=== PATIENT | male | born 1970 | race Caucasian/White ===

== ENCOUNTER → 2024-02-11 11:14 | Outpatient (BNVA) | payer BC, MEDICAID, SELFPAY | PROVIDERS: PCP Nurse Practitioner; Visit Provider Specialist | DX: M25.551 Pain in right hip (principal) | CPT/HCPCS: 73502 ==

== ENCOUNTER 2024-02-16 05:16 | Day surgery (SDC) | payer BC, MEDICAID, SELFPAY ==
[2024-02-16] VITALS (11 sets, daily range): BP systolic 121–172; BP diastolic 72–101; PULSE 68–82; RESP 16–72; TEMP 36.3–36.5; O2SAT 92–99; BMI 30.7
--- NOTE | 2024-02-16 05:55 | P.HPUD_ITS ---
Surgery/Procedure H&P Update DATE OF PROCEDURE: February 16, 2024 DATE H&P PERFORMED: 01/28/24 H&P UPDATE INFORMATION: I have reviewed H&P completed within last 30 days, I have examined patient prior to procedure, No changes to prior documentation and H&P is in [facility] on date indicated PLANNED PROCEDURE: Operation Date: 02/16/24 07:00 Proposed Procedures p Excision upper back mass 06548, R22.2(Not Applicable) - Juvenal English MD
[2024-02-16] MEDS: sodium chloride 0.9% 1,000 ML 30 ML IV (06:37)
[2024-02-16 06:42] LABS: Glucose Point of Care 192 mg/dL (70-110)
[2024-02-16] MEDS: ceFAZolin 2,000 mg SDV 2000 MG IVP (07:03)
--- NOTE | 2024-02-16 07:13 | ANES.PREANE2 ---
Pre-Anesthetic Assessment Height/Weight: Height 1.74 m Weight 92.986 kg Temp Pulse Resp BP Pulse Ox O2 Del Method 97.6 F 73 17 172/101 99 Room Air 02/16/24 06:10 02/16/24 06:10 02/16/24 06:10 02/16/24 06:10 02/16/24 06:10 02/16/24 06:10 Operation Date: 02/16/24 07:00 Proposed Procedures p Excision upper back mass 21536, R22.2(Not Applicable) - Juvenal English MD Familial anesthetic complications: none Was Beta Michael taken within 24 hours: N/A Was Clonidine taken within 24 hours: N/A Last intake: Intake Last Liquid Date 02/15/24 Last Liquid Time 21:00 Last Solid Date 02/15/24 Last Solid Time 21:00 Social No alcohol and No tobacco marijuana Exam alert, oriented x 3, clear to auscultation bilaterally and regular rate & rhythm Airway Mallampati: Class II CV/HEM Hypertension Metabolic Diabetes Mellitus Anesthetic Plan ASA status: 3 Anesthesia: General Risk of > 500 ml blood loss (7ml/kg in children): No Medications/Allergies Home Medications Medication Instructions Recorded Confirmed Last Taken Type mupirocin 2 % topical ointment topical 01/28/24 02/11/24 Unknown History dapagliflozin propanediol 10 mg 10 mg PO DAILY 02/13/24 02/16/24 02/15/24 History tablet (Farxiga) duloxetine 30 mg capsule,delayed 30 mg PO DAILY 02/13/24 02/16/24 02/15/24 History release glimepiride 1 mg tablet 1 mg PO DAILY 02/13/24 02/16/24 02/15/24 History lisinopril 20 mg tablet 20 mg PO DAILY 02/13/24 02/16/24 02/15/24 History metformin 500 mg tablet 500 mg PO DAILY 02/13/24 02/16/24 02/15/24 History metoprolol succinate 50 mg 100 mg PO DAILY 02/13/24 02/16/24 02/15/24 History tablet,extended release 24 hr Allergies Allergy/AdvReac Type Severity Reaction Status Date / Time No Known Allergies Allergy Verified 02/11/24 12:22 Current Medications Generic Name Dose Route Start Last Admin Trade Name Freq PRN Reason Stop Dose Admin Sodium Chloride 1,000 mls @ 30 mls/hr 02/16/24 06:00 02/16/24 06:37 Sodium Chloride 0.9% IV 02/17/24 05:59 30 mls/hr .Q24H JENNY Administration PFSH Anesthesia Social History Smoking and tobacco/nicotine status: never used tobacco/nicotine Data Anesthesia Cardiac Studies: No Data to Display
[2024-02-16] MEDS: lidocaine-epi 1% 20 mL INJ INJECTION (07:40)
[2024-02-16] MEDS: BUPivacaine 0.25% INJ 30 mL INJECTION (07:40)
--- NOTE | 2024-02-16 08:16 | P.OP_ITS ---
Operative Report Date of procedure: February 16, 2024 Pre-op diagnosis: Right upper back mass Post-op diagnosis: Right upper back mass Post-op findings: There was a right upper back mass of the subcutaneous tissue extending to the level of the fascia measuring 5 x 5 x 3 cm, likely consistent with the epidermal inclusion cyst Procedure done: Excision of right upper back mass Specimens removed/disposition: Upper back mass Surgeon: Juvenal English MD Interactive Art Director: DORON OR STaff Estimated blood loss: 5 Brief History: This was a 53-year-old male who presented to my office for evaluation of a large right upper back mass, according to the patient this likely a cyst and it has drained multiple times over his lifetime, he will like to have it excised. After discussion of all risk and benefits of documented my preop note with side to proceed Procedure: Patient was brought into the OR, general anesthesia was given, he was placed in a supine position. The back was prepped and draped in the usual sterile fashion and a timeout was conducted. An elliptical incision enclosing the mass was made in the right upper back measuring about 8cm, the incision was deepened to the subcutaneous tissue until the capsule of the mass was identified, the mass was circumferentially dissected from the tissue with careful sharp dissection and electrocautery. The mass was noted to extend deep to the level of the fascia, the mass was excised from the fascia using electrocautery, once the mesh was liberated from the tissue final measurement was 5 x 5 x 3 cm. The wound was irrigated with saline, hemostasis was verified. 20 cc of local anesthesia was infiltrated in the wound bed and in the skin. I then proceeded with layer closure of the wound using #2 Vicryl for the deep layer, #3-0 Vicryl for the subcutaneous tissue and #3-0 nylon for the skin. Steri-Strips were applied and a sterile dressing was applied on top. At the end of the procedure all counts were correct, the patient tolerated well the procedure was transferred to the PACU in stable condition
--- NOTE | 2024-02-16 09:35 | ANE.PACU2 ---
Inpatient post-anesthesia follow up: Airway intact: Yes Vital signs: Temperature 97.3 F Pulse Rate 71 Respiratory Rate 18 Blood Pressure 158/89 Pulse Oximetry 94 Oxygen Delivery Me thod Room Air Oxygen Flow Rate 6 Fraction of Inspir ed Oxygen Hydration adequate: Yes Nausea and vomiting: No Pain level: 1 Mental status: Baseline
== END 2024-02-16 09:38 | disposition home or self-care (01) ==
PROVIDERS: PCP Nurse Practitioner; Visit Provider Surgery
PROC: (CPT 11406; principal; 2024-02-16 07:00)
DX: L72.0 Epidermal cyst (principal); I10 Essential (primary) hypertension; E11.9 Type 2 diabetes mellitus without complications
CPT/HCPCS: 11406; 12032; 36416; 82962; 88307; J0690; J1100; J1885; J2371; J2405; J2704; J2710; J3010; J3490; J7030

== ENCOUNTER → 2024-02-17 11:07 | Outpatient (BNVA) | payer BC, MEDICAID, SELFPAY | PROVIDERS: PCP Nurse Practitioner; Visit Provider Orthopaedic Surgery | DX: M54.2 Cervicalgia (principal); Z98.1 Arthrodesis status | CPT/HCPCS: 72050; 72110 ==

== ENCOUNTER 2024-03-30 10:34 | Outpatient (CLI) | payer BC, MEDICAID, SELFPAY ==
--- NOTE | 2024-03-30 11:45 | MR_ITS ---
WS: [id number] MRI LUMBAR SPINE NONCONTRAST HISTORY: back pain COMPARISON: 02/17/2024 radiograph TECHNIQUE: Sagittal and axial multisequence imaging is submitted. On the gas cutter localizer posterior facet joint arthritis encroaching upon the posterior thecal sac is n oted at T10-11. Posterior lumbar fusion from L4-S1. Interbody spacers at L4-5 and L5-S1. Normal lumbar alignment with no compression fractures or marrow edema. Conus terminates normally at L1-2 disc level. L1-L2: Moderate LEFT and mild RIGHT foraminal stenosis. L2-L3: Mild diffuse annular disc bulging with osteophytic ridging. Moderate ligamentum flavum and fac et arthritis. Mild central, bilateral subarticular recess and foraminal stenosis. L3-L4: Diffuse mild annular disc bulging with ligamentum flavum and facet arthritis. Encroachment upo n the thecal sac and the subarticular recesses. Moderate central, bilateral subarticular recess and f oraminal stenosis. Most significant disc contact on the traversing L4 nerve roots. L4-L5: Artifact obscuring the disc. There is at least mild LEFT and moderate RIGHT foraminal stenosis . Clumping of the nerve roots centrally. Posterior laminectomy defect. L5-S1: Posterior laminectomy defect. No central stenosis. Mild to moderate bilateral foraminal stenos is. Paravertebral soft tissue is negative. MR/MR lumbar spine wo con* [id number] IMPRESSION: 1. Status post L4-S1 posterior lumbar fusion with interbody spacers. 2. L3-4: Moderate central, bilateral subarticular recess and foraminal stenosi s due to combination of findings as described above. Most significant contact o n the traversing L4 nerve roots. 3. L4-5: Moderate RIGHT and mild LEFT foraminal stenosis. 4. L5-S1: Mild to moderate bilateral foraminal stenosis. 5. L2-3: Mild central, bilateral subarticular recess and foraminal stenosis.
== END 2024-03-30 10:35 | disposition home or self-care (01) ==
LOC: RAD 10:34
PROVIDERS: PCP Nurse Practitioner; Visit Provider Orthopaedic Surgery
DX: M99.63 Osseous and subluxation stenosis of intervertebral foramina of lumbar region (principal); M47.896 Other spondylosis, lumbar region; M96.1 Postlaminectomy syndrome, not elsewhere classified; Z98.1 Arthrodesis status
CPT/HCPCS: 72148

== ENCOUNTER 2024-04-13 07:22 | Day surgery (SDC) | payer BC, MEDICAID, SELFPAY ==
--- NOTE | 2024-04-13 07:32 | W.PM.OPSFHP ---
Same Day Surgery H&P Indication for Procedure/HPI DATE OF PROCEDURE: April 13, 2024 CHIEF COMPLAINT/INDICATIONFOR SURGICAL PROCEDURE: need for screening colonoscopy PREOP DIAGNOSIS: need for screening colonoscopy PLANNED PROCEDURE: Operation Date: 04/13/24 08:20 Proposed Procedures p Colonoscopy - 07935, G0105,Z12.11(Not Applicable) - Juvenal English MD Medications/Allergies* Home Medications Medication Instructions Recorded Confirmed Type dapagliflozin propanediol 10 mg 10 mg PO DAILY 02/13/24 04/12/24 History tablet (Farxiga) duloxetine 30 mg capsule,delayed 60 mg PO DAILY 02/13/24 04/12/24 History release glimepiride 1 mg tablet 1 mg PO DAILY 02/13/24 04/12/24 History lisinopril 20 mg tablet 20 mg PO DAILY 02/13/24 04/12/24 History metformin 500 mg tablet 500 mg PO DAILY 02/13/24 04/12/24 History metoprolol succinate 50 mg 100 mg PO DAILY 02/13/24 04/12/24 History tablet,extended release 24 hr Allergies/Adverse Reactions Allergy/AdvReac Type Severity Reaction Status Date / Time No Known Allergies Allergy Verified 04/08/24 10:35 Pertinent History/Comorbid Conditions* Family History (Updated 03/03/24 @ 13:08 by TOD Grant) Colon cancer Father Diabetes Mother Heart attack Father Social History Smoking and tobacco/nicotine status: never used tobacco/nicotine Pertinent Exam Findings alert, oriented x 3 and clear to auscultation bilaterally Recommendations Surgery/Procedure today Coding Level of Care Code Acute Code for Chg Fwd
[2024-04-13 07:37] VITALS: BP 169/107; PULSE 70; RESP 18; TEMP 36; O2SAT 96
--- NOTE | 2024-04-13 07:40 | ANES.PREANE2 ---
Pre-Anesthetic Assessment Height/Weight: Height 1.74 m Weight 92.986 kg Temp Pulse Resp BP Pulse Ox O2 Del Method 96.8 F L 70 18 169/107 96 Room Air 04/13/24 07:37 04/13/24 07:37 04/13/24 07:37 04/13/24 07:37 04/13/24 07:37 04/13/24 07:37 Preop Diagnosis: need for screening colonoscopy Operation Date: 04/13/24 08:20 Proposed Procedures p Colonoscopy - 23003, G0105,Z12.11(Not Applicable) - Juvenal English MD Familial anesthetic complications: None Was Beta Michael taken within 24 hours: Yes Was Clonidine taken within 24 hours: N/A Last intake: Intake Last Liquid Date 04/13/24 Last Liquid Time 06:00 Last Solid Date 04/11/24 Last Solid Time 20:00 Social No alcohol and No tobacco [place] Exam alert, oriented x 3, clear to auscultation bilaterally and regular rate & rhythm Airway Mallampati: Class II Dentition: chipped (several) and other (multiple missing) CV/HEM Hypertension Metabolic Diabetes Mellitus Anesthetic Plan ASA status: 2 Anesthesia: MAC Risk of > 500 ml blood loss (7ml/kg in children): No Medications/Allergies Home Medications Medication Instructions Recorded Confirmed Last Taken Type dapagliflozin propanediol 10 mg 10 mg PO DAILY 02/13/24 04/12/24 04/11/24 History tablet (Farxiga) duloxetine 30 mg capsule,delayed 60 mg PO DAILY 02/13/24 04/12/24 04/11/24 History release glimepiride 1 mg tablet 1 mg PO DAILY 02/13/24 04/12/24 04/11/24 History lisinopril 20 mg tablet 20 mg PO DAILY 02/13/24 04/12/24 04/11/24 History metformin 500 mg tablet 500 mg PO DAILY 02/13/24 04/12/24 04/11/24 History metoprolol succinate 50 mg 100 mg PO DAILY 02/13/24 04/12/24 04/13/24 History tablet,extended release 24 hr Allergies Allergy/AdvReac Type Severity Reaction Status Date / Time No Known Allergies Allergy Verified 04/08/24 10:35 [facility] Anesthesia Family History (Updated 03/03/24 @ 13:08 by TOD Grant) Father Colon cancer Heart attack Mother Diabetes Social History Smoking and tobacco/nicotine status: never used tobacco/nicotine Data Anesthesia Cardiac Studies: No Data to Display
[2024-04-13 07:46] LABS: Glucose Point of Care 119 mg/dL (70-110)
[2024-04-13] MEDS: sodium chloride 0.9% 1,000 ML 30 ML IV (07:46)
[2024-04-13 08:43] VITALS: BP 132/91; PULSE 62; RESP 18; TEMP 36.3; O2SAT 99
[2024-04-13 08:53] VITALS: BP 154/100; PULSE 74; RESP 18; TEMP 36.2; O2SAT 97
--- NOTE | 2024-04-13 09:15 | ANE.PACU2 ---
Inpatient post-anesthesia follow up: Airway intact: Yes Vital signs: Temperature 97.2 F Pulse Rate 74 Respiratory Rate 18 Blood Pressure 154/100 Pulse Oximetry 97 Oxygen Delivery Me thod Room Air Oxygen Flow Rate Fraction of Inspir ed Oxygen Hydration adequate: Yes Nausea and vomiting: No Pain level: 1 Mental status: Baseline
== END 2024-04-13 09:18 | disposition home or self-care (01) ==
PROVIDERS: PCP Nurse Practitioner; Visit Provider Surgery
PROC: 0DJD8ZZ Inspection of Lower Intestinal Tract, Via Natural or Artificial Opening Endoscopic (ICD-10-PCS; CPT 45378; principal; 2024-04-13 08:20)
DX: Z12.11 Encounter for screening for malignant neoplasm of colon (principal); K57.30 Diverticulosis of large intestine without perforation or abscess without bleeding; D17.5 Benign lipomatous neoplasm of intra-abdominal organs; I10 Essential (primary) hypertension; E11.9 Type 2 diabetes mellitus without complications
CPT/HCPCS: 36416; 45378; 82962; J2704; J7030

== ENCOUNTER 2024-04-19 13:35 | Outpatient (CLI) | payer BC, MEDICAID, SELFPAY ==
--- NOTE | 2024-04-19 13:45 | MR_ITS ---
WS: [id number] MRI CERVICAL SPINE NONCONTRAST TECHNIQUE: Sagittal T1, T2 and STIR imaging. Axial T2, gradient, and fiesta imaging. CLINICAL INFORMATION: M54.2 - Cervicalgia COMPARISON: None. FINDINGS: Straightening of the normal cervical lordosis. Cord signal is normal. No high-grade central canal ryan nosis. C2-C3: Mild facet arthropathy. Spinal canal is patent. Foramen are patent. C3-C4: Mild disc bulging with osteophytic ridging. Moderate LEFT greater than RIGHT bony foraminal na rrowing. Mild facet arthropathy. C4-C5: Mild endplate ridging. Moderate LEFT and mild RIGHT bony foraminal narrowing. Spinal canal is patent. C5-C6: Mild disc osteophyte complex with endplate ridging. Moderate LEFT and mild RIGHT bony foramina l narrowing. Moderate facet arthropathy. Uncovertebral joint hypertrophy. C6-C7: Shallow LEFT paracentral disc bulging. Spinal canal is patent. Moderate LEFT and mild RIGHT lexa ny foraminal narrowing. Moderate facet arthropathy. C7-T1: Normal. Visualized brain stem structures: Normal. Prevertebral soft tissues: Normal. MR/MR cervical spin wo con* [id number] IMPRESSION: 1. Straightening the normal cervical lordosis. Cord signal is normal. 2. No high-grade central canal stenosis. 3. Moderate bony foraminal narrowing worse at LEFT C3-4, LEFT C4-C5, LEFT C5-C 6, and LEFT C6-C7. 4. Shallow LEFT paracentral protrusion C6-C7. Spinal canal is patent.
== END 2024-04-19 13:36 | disposition home or self-care (01) ==
LOC: RAD 13:36
PROVIDERS: PCP Nurse Practitioner; Visit Provider Orthopaedic Surgery
DX: M99.61 Osseous and subluxation stenosis of intervertebral foramina of cervical region (principal); M50.20 Other cervical disc displacement, unspecified cervical region; M25.78 Osteophyte, vertebrae; M50.322 Other cervical disc degeneration at C5-C6 level; M50.323 Other cervical disc degeneration at C6-C7 level
CPT/HCPCS: 72141

== ENCOUNTER 2024-08-14 16:57 | Observation (INO) | payer BC, MEDICAID, SELFPAY ==
[2024-08-14] VITALS (10 sets, daily range): BP systolic 155–197; BP diastolic 101–116; PULSE 74–81; RESP 16–19; TEMP 36.6–37.4; O2SAT 94–98; BMI 31.1; BMI 31.7
--- NOTE | 2024-08-14 17:00 | XRR_ITS ---
PROCEDURE INFORMATION: Exam: XR Chest Exam date and time: 08/14/2024 5:18 PM Age: 53 years old Clinical indication: Shortness of breath; Additional info: TIA TECHNIQUE: Imaging protocol: Radiologic exam of the chest. Views: 1 view. COMPARISON: No relevant prior studies available. FINDINGS: Lungs: Visualized lungs are clear. Pleural spaces: Unremarkable. No pleural effusion. No pneumothorax. Heart/Mediastinum: Heart is within normal limits of size. Bones/joints: There are degenerative changes in the thoracic spine. There is no evidence of acute fracture. XR/XR chest 1V portable [id number] IMPRESSION: No acute infiltrate.
--- NOTE | 2024-08-14 17:00 | CTR_ITS ---
PROCEDURE INFORMATION: Exam: CT Head Without Contrast Exam date and time: 08/14/2024 4:57 PM Age: 53 years old Clinical indication: Stroke-like symptoms; Altered mental status/memory loss; Additional info: Symptoms of acute stroke TECHNIQUE: Imaging protocol: Computed tomography of the head without contrast. Radiation optimization: All CT scans at this facility use at least one of these dose optimization techniques: automated exposure control; mA and/or kV adjustment per patient size (includes targeted exams where dose is matched to clinical indication); or iterative reconstruction. Other technique: STROKE PROTOCOL was implemented. COMPARISON: MR cervical spin wo con* [id number] 04/19/2024 1:58 PM RADIATION DOSE METRICS: Total DLP (mGy-cm): 1130.94 FINDINGS: Brain: Normal. No hemorrhage. Unremarkable white matter. No mass effect. Cerebral ventricles: No ventriculomegaly. Paranasal sinuses: There are few small mucous retention cysts in the maxillary antra. Mastoid air cells: Visualized mastoid air cells are well aerated. Bones: Unremarkable. No acute fracture. Soft tissues: Unremarkable. CT/CT head thrombolytic [id number] IMPRESSION: No acute intracranial abnormality. ASSESSMENT: ASPECTS ([place] Stroke Program Early CT Score) is 10.
--- NOTE | 2024-08-14 17:00 | ECG_ITS ---
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
[2024-08-14 17:19] LABS: Basophils # 0.1 10^3/uL (0.0-0.1); Basophils % 0.6 %; Eosinophils # 0.4 10^3/uL (0.0-0.8); Eosinophils % 3.6 %; Hematocrit 48.2 % (37-53); Lymphocytes # 2.6 10^3/uL (0.8-4.8); Lymphocytes % 22.3 %; Mean Corpuscular HGB Conc 35.1 g/dL (30-55); Mean Corpuscular Hemoglobin 30.2 pg (27-33); Mean Corpuscular Volume 86.1 fl (82-101); Monocytes % 8.5 %; Neutrophils # 7.46 10^3/uL (1.8-7.7); Neutrophils % 64.7 %; Nucleated Red Blood Cells % 0 %; Platelet Count 259 10^3/cmm (157-399); Red Cell Distribution Width 12.5 % (12.1-15.1); White Blood Count 11.55 10^3/uL (3.29-11.43)
--- NOTE | 2024-08-14 17:21 | W.ED.NEUROSD ---
HPI - Neuro Symptoms/Deficit General: Chief Complaint: Neuro Symptoms/Deficit Stated Complaint: stroke like symptoms Time Seen by Provider: 08/14/24 17:00 History of Present Illness: 53-year-old male presents with 2 episodes of left-sided facial droop and difficulty getting his words out. The first episode lasted while he was at a community clinic when he developed brief episode of left-sided facial droop, left-sided weakness and difficulty with speech that quickly resolved. EMS arrived and patient was asymptomatic but however en route he had another episode that was very similar that resolved. Upon arrival to the ER patient symptoms have completely resolved. His mother did recently just have a TIA. Patient has no symptoms at this time. Associated symptoms: Deny chest pain, nausea or vomiting Related Data Home Medications ?Medication ?Instructions ?Recorded ?Confirmed dapagliflozin propanediol 10 mg 10 mg PO DAILY 02/13/24 08/12/24 tablet (Farxiga) duloxetine 30 mg capsule,delayed 60 mg PO DAILY 02/13/24 08/12/24 release glimepiride 1 mg tablet 1 mg PO DAILY 02/13/24 08/12/24 lisinopril 20 mg tablet 20 mg PO DAILY 02/13/24 08/12/24 metformin 500 mg tablet 500 mg PO DAILY 02/13/24 08/12/24 metoprolol succinate 50 mg 100 mg PO DAILY 02/13/24 08/12/24 tablet,extended release 24 hr Allergies Allergy/AdvReac Type Severity Reaction Status Date / Time No Known Allergies Allergy Verified 08/14/24 17:17 Review of Systems Const: Denies: fever(s) or chills Card: Denies: chest pain or palpitations Resp: Denies: dyspnea or productive cough GI: Denies: abdominal pain, nausea or vomiting Musc: Reports: muscle weakness Neuro: Reports: weakness in extremities and Slurred speech present PFSH ED PFSH: Family History Father Colon cancer Heart attack Mother Diabetes Social History Smoking and tobacco/nicotine status: unknown if used tobacco/nicotine Physical Exam Const: COMMON NORMALS: no acute distress, average body habitus, patient oriented x3 and healthy appearing Eye: COMMON NORMALS: Equal, round and reactive pupils present and EOMs intact bilaterally PUPIL: Yes Equal, round and reactive pupils present Resp: COMMON NORMALS: normal respiratory effort and clear to auscultation bilaterally AUSCULTATION: clear to auscultation bilaterally Cardio: COMMON NORMALS: regular rate and regular rhythm RATE: regular rate RHYTHM: regular rhythm GI: COMMON NORMALS: Soft to palpation and non-tender PALPATION: Yes Soft to palpation Extremity: COMMON NORMALS: normal to inspection, full ROM and capillary refill normal Neuro: COMMON NORMALS: patient oriented x3, CN's II-XII intact bilaterally, moves all extremities, no focal motor deficits, no sensory deficits noted and deep tendon reflexes 2+ bilaterally OTHER: NIH 0 Psych: COMMON NORMALS: mental status grossly normal, Normal thought process present and normal affect THOUGHT PROCESS: Normal thought process present Course Vital Signs: Vital signs: Vital Signs Temperature 99.4 F 08/14/24 17:09 Pulse Rate 79 08/14/24 17:40 Respiratory Rate 18 08/14/24 17:40 Blood Pressure 155/108 08/14/24 17:40 Pulse Oximetry 94 08/14/24 17:40 Oxygen Delivery Me thod Room Air 08/14/24 17:40 MDM - Neuro Symptoms/Deficit Medical Decision Making Patient's diagnostic studies were ordered and reviewed. Patient has no acute findings on CT head or chest x-ray. Patient's evaluation shows no significant acute findings. Patient was seen by the neurologist Dr. Cope for the stroke alert. Patient had a NIH score of 0. Following negative evaluation patient is to be admitted to Dr. Easley for further inpatient TIA evaluation and workup. Discussed case with him and he excepted patient. Patient was stable upon transfer. He remained with a NIH 0 prior to admission. Lab Data 08/14/24 16:45 08/14/24 16:45 Radiology Impressions Chest X-Ray 08/14/24 17:00 IMPRESSION: No acute infiltrate. Head CT 08/14/24 17:00 IMPRESSION: No acute intracranial abnormality. ASSESSMENT: ASPECTS ([place] Stroke Program Early CT Score) is 10. ADDENDUM: 08/14/24 [id number] Addendum: THIS REPORT CONTAINS FINDINGS THAT MAY BE CRITICAL TO PATIENT CARE. The findings were verbally communicated via telephone conference with SALVATORE MONTALVO at 5:13 PM COLLEGE INTERN on 08/14/2024. The findings were acknowledged and understood. Laboratory Results WBC 11.55 10^3/uL (3.29-11.43) H 08/14/24 16:45 RBC 5.60 10^6/uL (3.85-5.65) 08/14/24 16:45 Hgb 16.90 g/dL (11.27-16.99) 08/14/24 16:45 Hct 48.2 % (37-53) 08/14/24 16:45 MCV 86.1 fl (82-101) 08/14/24 16:45 MCH 30.2 pg (27-33) 08/14/24 16:45 MCHC 35.1 g/dL (30-55) 08/14/24 16:45 RDW 12.5 % (12.1-15.1) 08/14/24 16:45 Plt Count 259 10^3/cmm (157-399) 08/14/24 16:45 MPV 10.0 fL (7.4-10.4) 08/14/24 16:45 Neut % (Auto) 64.7 % 08/14/24 16:45 Lymph % (Auto) 22.3 % 08/14/24 16:45 Day % (Auto) 8.5 % 08/14/24 16:45 Eos % (Auto) 3.6 % 08/14/24 16:45 Baso % (Auto) 0.6 % 08/14/24 16:45 Neut # (Auto) 7.46 10^3/uL (1.8-7.7) 08/14/24 16:45 Lymph # (Auto) 2.6 10^3/uL (0.8-4.8) 08/14/24 16:45 Day # (Auto) 1.0 10^3/uL (0.2-0.9) H 08/14/24 16:45 Eos # (Auto) 0.4 10^3/uL (0.0-0.8) 08/14/24 16:45 Baso # (Auto) 0.1 10^3/uL (0.0-0.1) 08/14/24 16:45 Nucleated RBC % (auto) 0 % 08/14/24 16:45 Nucleated RBCs # 0.0 /100WBC 08/14/24 16:45 PT 13.40 SECONDS (12.1-14.9) 08/14/24 16:45 INR 0.96 (0.8-1.2) 08/14/24 16:45 APTT 26.2 SECONDS (23.9-36.7) 08/14/24 16:45 Sodium 139 mmol/L (136-145) 08/14/24 16:45 Potassium 3.6 mmol/L (3.5-5.1) 08/14/24 16:45 Chloride 100 mmol/L (98-107) 08/14/24 16:45 Carbon Dioxide 27 mmol/L (22-29) 08/14/24 16:45 Anion Gap 15.6 (5-19) 08/14/24 16:45 BUN 11 mg/dL (6-20) 08/14/24 16:45 Creatinine 0.6 mg/dL (0.7-1.2) L 08/14/24 16:45 GFR Calculation 140.9 mL/min (90-130) H 08/14/24 16:45 Glucose 109 mg/dL (65-115) 08/14/24 16:45 Calculated Osmolality 288 mOsm/kg (285-295) 08/14/24 16:45 Calcium 9.7 mg/dL (8.5-10.5) 08/14/24 16:45 Total Bilirubin 0.4 mg/dL (0.15-1.2) 08/14/24 16:45 AST 15 U/L (0-40) 08/14/24 16:45 ALT 22 U/L (0-41) 08/14/24 16:45 Alkaline Phosphatase 79 U/L (40-130) 08/14/24 16:45 Total Protein 7.5 g/dL (6.6-8.7) 08/14/24 16:45 Albumin 4.3 g/dL (3.5-5.2) 08/14/24 16:45 Globulin 3.2 g/dL (1.3-4.6) 08/14/24 16:45 All radiology interpretation(s) finalized by discharge Discharge Plan Discharge Patient Disposition: Placed in Observation Clinical Impression: Transient cerebral ischemia Coding Level of Care Code ED Online Banking Specialist for Radha Healy
--- NOTE | 2024-08-14 17:22 | PM.CONSULT ---
Providers/Reason For Consult Consulting Physician/Specialty*: Richard Cope MD neurology and epilepsy Reason for Consult*: Acute care/code stroke emergency department room #7 Primary Care Provider: NIEVES Carr History of Present Illness History of Present Illness Cristobal Kohler is a 53 year old male with a history of hypertension. On 08/14/2024 at approximately 4 PM the patient was at a community gathering and was observed to experience slurred speech with difficulty talking for approximately 1 minute followed by the symptoms resolving. The patient stated that en route to the emergency room he experienced slurred speech with inability to speak for 30 seconds. Symptoms resolved by the time the patient arrived at [facility] emergency department. Patient was transferred to room #7. Code stroke was initiated at 4:43 PM. NIH score = 0 Point of contact glucose Accu-Chek 107 Serum glucose pending at the time of this dictation Noncontrast head CT 08/14/2024 no acute findings Drug allergies: Patient reported chest pain when he took a cholesterol-lowering agent (the patient could not recall the name of the medication) Current medications: Metoprolol 100 mg p.o. daily Metformin 500 mg p.o. daily Lisinopril 20 mg p.o. daily Glimepiride 1 mg p.o. daily Cymbalta 60 mg p.o. daily Farxiga 10 mg p.o. daily Past medical history: Hypertension Lumbar fusion with cage placement Degenerative disc disease of the cervical spine Left carpal tunnel syndrome diagnosed by Dr. Saenz Habits: The patient reports that he smokes marijuana. He denied other drug use Family history: Remarkable for mother who experienced a stroke Remarkable for a father who had colon cancer and of myocardial infarction Review of Systems General: Reports: 10 or more systems reviewed and unremarkable except in HPI and below Musc: Reports: neck pain, back pain and extremity pain (Right leg, chronic) Neuro: Reports: Slurred speech present (Resolved) Medications/Allergies Home Medications ?Medication ?Instructions ?Recorded ?Confirmed ?Last Taken ?Type dapagliflozin propanediol 10 mg 10 mg PO DAILY 02/13/24 08/12/24 04/11/24 History tablet (Farxiga) duloxetine 30 mg capsule,delayed 60 mg PO DAILY 02/13/24 08/12/24 04/11/24 History release glimepiride 1 mg tablet 1 mg PO DAILY 02/13/24 08/12/24 04/11/24 History lisinopril 20 mg tablet 20 mg PO DAILY 02/13/24 08/12/24 04/11/24 History metformin 500 mg tablet 500 mg PO DAILY 02/13/24 08/12/24 04/11/24 History metoprolol succinate 50 mg 100 mg PO DAILY 02/13/24 08/12/24 04/13/24 History tablet,extended release 24 hr Allergies Allergy/AdvReac Type Severity Reaction Status Date / Time No Known Allergies Allergy Verified 08/14/24 17:17 PFSH Acute PFSH: Family History Father Colon cancer Heart attack Mother Diabetes Social History Smoking and tobacco/nicotine status: unknown if used tobacco/nicotine Vitals/I&O/Wt Last Vital Signs Temp 99.4 F 08/14/24 17:09 Pulse 81 08/14/24 17:09 Resp 19 H 08/14/24 17:09 BP 173/101 08/14/24 17:09 Pulse Ox 98 08/14/24 17:09 O2 Del Method Room Air 08/14/24 17:09 Weight last 48 hrs Weight 214 lb Physical Exam Narrative: NIH score = 0 Point of contact glucose Accu-Chek 107 Serum glucose pending at the time of this dictation Noncontrast head CT 08/14/2024 no acute findings Blood pressure 173/101 heart rate 81 O2 saturation 98% on room air The patient is alert and oriented x 3. Speech fluent. Head normocephalic. Neck supple. Cranial nerves II through XII grossly intact. Pupils 3 to 4 mm round reactive light and accommodation. Extraocular movements intact. There were no nystagmus. Visual castañeda appear to be full via confrontation. Motor testing 5/5 bilaterally. There was no drift. There was no signs of ataxia. Sensory examination was intact to touch. There was no extinction on double sensory stimulation. Throat clear. Lungs clear. Heart regular rhythm and rate. Extremities were negative for cyanosis. Data 08/14/24 16:45 08/14/24 16:45 A&P Assessment and plan (1) TIA (transient ischemic attack): Impression: 1. Transient ischemic attack 08/14/2024 manifested as slurred speech with inability to speak for approximately 1 minute which resolved but returned en route with EMS lasting for 30 seconds and resolved. Currently patient is NIH score =0. The patient is asymptomatic. Therefore patient was not a candidate for intravenous thrombolytics and no intravenous thrombolytics were administered. 2. Hypertension blood pressure 173/101 in the emergency department Plan: 1. Agree with observation admission to monitor for any recurrent stroke symptoms 2. Aspirin 3 and 25 mg p.o. now x 1 dose then 325 mg p.o. every morning with food for stroke prophylaxis per NIH stroke protocol 3. Protonix 40 mg p.o. daily for GI protection 4. Neurochecks and vital signs per NIH stroke protocol 5. Recommend obtaining 2D echocardiogram with bubble study as well as carotid duplex study to assess for cardiac causes for TIAs as well as assess for carotid or vertebral artery stenosis 6. Stroke pamphlet and stroke information/education for patient 7. Since patient reported GI upset when taking a cholesterol-lowering agent recommend family physician address whether or not patient should be on cholesterol-lowering agent per NIH stroke protocol since the patient reported chest pain when taking the medication (type of cholesterol medication or name of the cholesterol-lowering agent could not be recalled by the patient) 8. Consider occupational therapy, physical therapy and speech therapy consult/evaluation per NIH stroke protocol. Note: Currently patient is NIH score = 0 and patient is asymptomatic 9. Address hypertension 10. Recommend patient be placed on cardiac telemetry monitoring to assess for cardiac arrhythmias and obtain cardiac evaluation if EKG or cardiac telemetry reveals arrhythmias PDMP PDMP Reviewed: Not Reviewed Consult Attestations Medical Necessity Statement: The patient was evaluated by neurology for acute care/code stroke emergency department room #7 Coding Level of Care Code 04735 Diagnoses TIA (transient ischemic attack) G45.9
[2024-08-14 17:30] LABS: INR 0.96 (0.8-1.2); Partial Thromboplastin Time 26.2 SECONDS (23.9-36.7)
[2024-08-14 17:41] LABS: Alanine Aminotransferase 22 U/L (0-41); Albumin Level 4.3 g/dL (3.5-5.2); Alkaline Phosphatase 79 U/L (40-130); Anion Gap 15.6 (5-19); Aspartate Amino Transferase 15 U/L (0-40); Blood Urea Nitrogen 11 mg/dL (6-20); Calcium 9.7 mg/dL (8.5-10.5); Carbon Dioxide 27 mmol/L (22-29); Chloride 100 mmol/L (98-107); Globulin 3.2 g/dL (1.3-4.6); Glomerular Filtration Rate 140.9 mL/min (90-130); Glucose 109 mg/dL (65-115); Osmolality Calculated 288 mOsm/kg (285-295); Potassium 3.6 mmol/L (3.5-5.1); Sodium 139 mmol/L (136-145); Total Bilirubin 0.4 mg/dL (0.15-1.2); Total Protein 7.5 g/dL (6.6-8.7)
[2024-08-14 17:44] LABS: Creatinine Clr Calc Pharmacy 163.6236
--- NOTE | 2024-08-14 18:08 | CTR_ITS ---
PROCEDURE INFORMATION: Exam: CTA Head With Contrast, Arteriography Exam date and time: 08/14/2024 6:55 PM Age: 53 years old Clinical indication: Speech disturbance and weakness; Left facial droop with slurred speech and lue weakness. ; Additional info: TIA TECHNIQUE: Imaging protocol: Computed tomographic angiography of the head with contrast. Exam focused on the arteries. 3D rendering (Not supervised by radiologist): MIP and/or 3D reconstructed images were created by the technologist. Radiation optimization: All CT scans at this facility use at least one of these dose optimization techniques: automated exposure control; mA and/or kV adjustment per patient size (includes targeted exams where dose is matched to clinical indication); or iterative reconstruction. Contrast material: OMNI 350; Contrast volume: 100 ml; Contrast route: INTRAVENOUS (IV); COMPARISON: CT head thrombolytic [id number] 08/14/2024 4:57 PM RADIATION DOSE METRICS: Total DLP (mGy-cm): 514.62 FINDINGS: ANTERIOR CIRCULATION: Right internal carotid artery: Intracranial segment is patent with no significant stenosis. No aneurysm. Right middle cerebral artery: No occlusion or significant stenosis. No aneurysm. Right anterior cerebral artery: No occlusion or significant stenosis. No aneurysm. Left internal carotid artery: Intracranial segment is patent with no significant stenosis. No aneurysm. Left middle cerebral artery: No occlusion or significant stenosis. No aneurysm. Left anterior cerebral artery: No occlusion or significant stenosis. No aneurysm. POSTERIOR CIRCULATION: Right vertebral artery: No occlusion or significant stenosis. No aneurysm. Left vertebral artery: No occlusion or significant stenosis. No aneurysm. Basilar artery: No occlusion or significant stenosis. No aneurysm. Right posterior cerebral artery: No occlusion or significant stenosis. No aneurysm. Left posterior cerebral artery: No occlusion or significant stenosis. No aneurysm. Brain: No definite mass, mass effect, or midline shift. Cerebral ventricles: No ventriculomegaly. Bones/joints: Unremarkable. No acute fracture. Soft tissues: Unremarkable. PROCEDURE INFORMATION: Exam: CTA Neck With Contrast Exam date and time: 08/14/2024 6:55 PM Age: 53 years old Clinical indication: Speech disturbance and weakness; Left facial droop with slurred speech and lue weakness. ; Additional info: TIA TECHNIQUE: Imaging protocol: Computed tomographic angiography of the neck with contrast. Exam focused on the cervical segments of the vasculature. 3D rendering (Not supervised by radiologist): MIP and/or 3D reconstructed images were created by the technologist. Radiation optimization: All CT scans at this facility use at least one of these dose optimization techniques: automated exposure control; mA and/or kV adjustment per patient size (includes targeted exams where dose is matched to clinical indication); or iterative reconstruction. Contrast material: OMNI 350; Contrast volume: 100 ml; Contrast route: INTRAVENOUS (IV); COMPARISON: MR cervical spin wo con* [id number] 04/19/2024 1:58 PM RADIATION DOSE METRICS: Total DLP (mGy-cm): 1405.62 FINDINGS: Right common carotid artery: No stenosis. No dissection or occlusion. Right internal carotid artery: No stenosis of the extracranial segment. No dissection or occlusion. Right external carotid artery: No occlusion or stenosis of the origin. Left common carotid artery: No stenosis. No dissection or occlusion. Left internal carotid artery: No stenosis of the extracranial segment. No dissection or occlusion. Left external carotid artery: No occlusion or stenosis of the origin. Right vertebral artery: No stenosis. No dissection or occlusion. Left vertebral artery: No stenosis. No dissection or occlusion. Soft tissues: Normal. No significant soft tissue swelling. Bones/joints: No acute fracture. CT/CT angio headneck* [id number] IMPRESSION: No large vessel stenosis or occlusion. IMPRESSION: No stenosis or occlusion. REFERENCES: NASCET CRITERIA. The degree of stenosis in the cervical segment of the internal carotid artery is based on NASCET criteria. Normal is no stenosis. Mild is less than 50% stenosis. Moderate is 50-69% stenosis. Severe is 70% to 99% stenosis. Total occlusion is no detectable patent lumen.
[2024-08-14] MEDS: aspirin 325 mg Tablet PO (18:12)
--- NOTE | 2024-08-14 18:28 | PM.HP ---
Providers/Chief Complaint Admitting Physician: Roger Easley MD Primary Care Provider: NIEVES Carr Chief Complaint: stroke like symptoms History of Present Illness Cristobal Kohler is a 53 year old male with past medical history of hypertension, hyperlipidemia, type 2 diabetes mellitus presents to the ER today because of episodes of slurred speech. Patient states he had an episode which lasted for around 1 minute earlier in the morning. After that event he had another episode in which he had slurred speech. Denied any weakness in his arms or legs, headache, dizziness, chest pain. Denies any history of TIAs or CVA in the past. States he has not been taking his medications as regularly as he needs to recently because he has been feeling depressed. Seen by neurologist in the ER who recommended patient to be monitored overnight. Review of Systems General: Reports: 10 or more systems reviewed and unremarkable except in HPI and below Const: Denies: fever(s), chills, body aches, change in appetite, change in weight, malaise, night sweats, diaphoresis, change in sleep pattern, daytime sleepiness or snoring Eyes: Denies: change in vision, blurry vision, photophobia, eye discomfort or eye discharge ENMT: Denies: throat pain, enlarged tonsils, hoarseness, mouth pain, oral sores, dry mouth, tinnitus, nasal congestion or post nasal drip Card: Denies: chest pain, palpitations, irregular heart rhythm, edema, swelling of feet/ankles, lightheadedness, syncope, pre-syncope, dyspnea on exertion, orthopnea, leg pain with exertion or acrocyanosis Resp: Denies: dyspnea, productive cough, non-productive cough, wheezing, stridor, pain on inspiration, change in phlegm color, hemoptysis or chest congestion GI: Denies: abdominal pain, nausea, vomiting, hematemesis, coffee ground emesis, dysphagia, heartburn, diarrhea, constipation, bloating, GI cramping, change in bowel habits, pain on defecation, hematochezia or melena : Denies: flank pain, difficulty urinating, dysuria, urinary frequency, urinary urgency, urinary hesitancy, urinary dribbling, difficulty starting urination, change in urine stream, nocturia or hematuria Musc: Denies: neck pain, back pain, extremity pain, joint pain, joint swelling, joint redness, joint stiffness or limited range of motion Neuro: Denies: headache(s), numbness in extremities, weakness in extremities, sensory changes, lack of coordination, difficulty walking, frequent falls, dizziness, vertigo, confusion, Slurred speech present, difficulty communicating thoughts or seizure-like activity Psych: Denies: anxiety, depression, mood swings, panic attacks, hopelessness or irritability Endo: Denies: polyuria, polydipsia, tired all the time, cold intolerance, excessive sweating, flushing or heat intolerance Jake/Lymph: Denies: easy bruising or easy bleeding All/Imm: Denies: tongue swelling, facial swelling or acute wheezing Medications/Allergies Home Medications ?Medication ?Instructions ?Recorded ?Confirmed ?Last Taken ?Type dapagliflozin propanediol 10 mg 10 mg PO DAILY 02/13/24 08/12/24 04/11/24 History tablet (Farxiga) duloxetine 30 mg capsule,delayed 60 mg PO DAILY 02/13/24 08/12/24 04/11/24 History release glimepiride 1 mg tablet 1 mg PO DAILY 02/13/24 08/12/24 04/11/24 History lisinopril 20 mg tablet 20 mg PO DAILY 02/13/24 08/12/24 04/11/24 History metformin 500 mg tablet 500 mg PO DAILY 02/13/24 08/12/24 04/11/24 History metoprolol succinate 50 mg 100 mg PO DAILY 02/13/24 08/12/24 04/13/24 History tablet,extended release 24 hr Allergies Allergy/AdvReac Type Severity Reaction Status Date / Time No Known Allergies Allergy Verified 08/14/24 17:17 PFSH Acute PFSH: Medical History (Updated 08/14/24 @ 18:30 by Roger Easley MD) Depression Hyperlipidemia Type 2 diabetes mellitus Hypertension Surgical History (Updated 08/14/24 @ 18:30 by Roger Easley MD) Hx of splenectomy Hx of cystostomy Hx of kidney removal History of lumbar fusion Hx of excision of mass Upper back mass- Dr English Family History Father Colon cancer Heart attack Mother Diabetes Social History Smoking and tobacco/nicotine status: unknown if used tobacco/nicotine Vitals/I&O/Wt Last Vital Signs Temp 99.4 F 08/14/24 17:09 Pulse 74 08/14/24 18:15 Resp 18 08/14/24 18:15 BP 164/116 08/14/24 18:15 Pulse Ox 94 08/14/24 18:15 O2 Del Method Room Air 08/14/24 18:15 Weight last 48 hrs Weight 97.069 kg Physical Exam Narrative: General: No acute distress, AO x3 HEENT: PERRLA, pupils bilaterally equal and reactive Chest: Normal vesicular breath sounds, no added sounds, equal good air entry bilaterally CVS: S1-S2 regular, no murmurs, no tachycardia, no gallops, no rubs Abdomen: Soft, nontender, no organomegaly, bowel sounds present Neuro: No focal deficits, no facial deformity, AO x3, power 5/5 in all limbs Data 08/14/24 16:45 08/14/24 16:45 A&P Assessment and plan (1) TIA (transient ischemic attack): Seen by neurologist in the ER. Check CTA head and neck, echocardiogram. Check A1c, lipid panel. 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 Received aspirin 325 mg in the ER. Continue with 81 mg daily, atorvastatin 80 mg daily. Check UA, drug screen. (2) Hypertension: Goal blood pressure less than 140/90 mmHg. For now continue with home dose of lisinopril and metoprolol. Will uptitrate as for goal blood pressure. IV hydralazine 10 mg every 4 hours as needed for systolic of more than 160 mmHg. (3) Type 2 diabetes mellitus: Check A1c. Takes glimepiride at home. For now start on insulin sliding scale. (4) Hyperlipidemia: Check A1c. (5) Depression: Continue with home dose of Cymbalta. States he has been more depressed recently. Will refer to [facility] as an outpatient. Denies any homicidal or suicidal ideations. Plan Start consistent cardiac diet Protonix OPD prophylaxis Heparin 5000 Q12 hourly for DVT prophylaxis. PDMP PDMP Reviewed: Not Reviewed Attestations Medical Necessity Statement*: Admit under observation for further evaluation and management of TIA. Diagnoses TIA (transient ischemic attack) G45.9 Hypertension I10 Type 2 diabetes mellitus E11.9 Hyperlipidemia E78.5 Depression F32.A
[2024-08-14 18:31] LABS: Bilirubin Urine Negative (Negative); Blood Urine Negative (Negative); Glucose Urine UA 2+ (Normal); Ketones Urine Negative (Negative); Leukocyte Esterase Urine Negative (Negative); Nitrate Urine Negative (Negative); Protein Urine Negative (Negative); Urine Appearance Clear (CLEAR); Urine Color Yellow (Yellow); pH Urine 7.5 (5-7)
[2024-08-14 18:36] LABS: Add Urine Microscopic? YES; Bacteria Urine None Seen /hpf; Hyaline Casts Urine 0-4 /lpf; RBC Urine 0-2 /hpf (0-2); Squamous Epithelial Cell Urine 0-5 /hpf (0-5); WBC Urine 0-5 /hpf (0-5)
[2024-08-14 18:38] LABS: Amphetamines Screen Urine Negative (Negative); Barbiturates Screen Urine Negative (Negative); Benzodiazepines Screen Urine Negative (Negative); Cocaine Screen Urine Negative (Negative); Opiate Screen Urine Negative (Negative); PCP Screen Urine Negative (Negative); THC Screen Urine Positive (Negative)
[2024-08-14] MEDS: iohexol 350 mg/mL 500 mL Btl (per mL) IV (19:03)
[2024-08-14] MEDS: lisinopril 20 mg Tablet PO (20:15)
[2024-08-14 23:08] LABS: Glucose Point of Care 183 mg/dL (70-110)
[2024-08-14] MEDS: heparin 5,000 unit/mL INJ 1 mL 5000 UNIT SUBCUT (23:35)
[2024-08-14] MEDS: hyDRALAzine 20 mg/mL INJ 1 mL 10 MG IVP (23:35)
[2024-08-15] VITALS (9 sets, daily range): BP systolic 150–185; BP diastolic 84–108; PULSE 69–81; RESP 14–18; TEMP 36.4–36.8; O2SAT 95–98
[2024-08-15 00:03] LABS: Estmated Average Glucose 143; Hemoglobin A1C 6.6 % (4.0-6.0)
[2024-08-15 00:51] LABS: Glucose Point of Care 116 mg/dL (70-110)
[2024-08-15] MEDS: hyDRALAzine 20 mg/mL INJ 1 mL 10 MG IVP ×2 (01:37→09:00)
[2024-08-15 02:49] LABS: Iron 90 ug/dL (59-158); Percent Saturation 35.5 % (20-50); Thyroid Stimulating Hormone 2.17 uIU/mL (0.27-4.20); Total Iron Binding Capacity 253 mcg/dl; Unsaturated Iron Binding 163 ug/dL (112-347); Vitamin B12 328 pg/mL (232-1245)
[2024-08-15 06:15] LABS: Glucose Point of Care 183 mg/dL (70-110)
[2024-08-15 06:32] LABS: Basophils # 0.1 10^3/uL (0.0-0.1); Basophils % 0.6 %; Eosinophils # 0.3 10^3/uL (0.0-0.8); Eosinophils % 2.6 %; Lymphocytes # 2.7 10^3/uL (0.8-4.8); Lymphocytes % 21.5 %; Mean Corpuscular HGB Conc 33.4 g/dL (30-55); Mean Corpuscular Hemoglobin 30.1 pg (27-33); Mean Corpuscular Volume 90.3 fl (82-101); Mean Platelet Volume 9.8 fL (7.4-10.4); Monocytes % 7.9 %; Neutrophils # 8.37 10^3/uL (1.8-7.7); Neutrophils % 67.1 %; Nucleated Red Blood Cells % 0 %; Platelet Count 232 10^3/cmm (157-399); Red Blood Count 5.54 10^6/uL (3.85-5.65); Red Cell Distribution Width 12.8 % (12.1-15.1); White Blood Count 12.49 10^3/uL (3.29-11.43)
[2024-08-15 06:52] LABS: Chol HDL Ratio 6.62 mg/dL (1.0-5.00); Cholesterol 172 mg/dL (0-200); HDL Cholesterol 26 mg/dL (60-100); LDL Cholesterol Calculated 84 mg/dL (50-129); LDL HDL Ratio 3.23 RATIO (0.00-3.22); Triglycerides 312 mg/dL (0-150)
[2024-08-15 06:53] LABS: Alanine Aminotransferase 17 U/L (0-41); Albumin Level 3.9 g/dL (3.5-5.2); Alkaline Phosphatase 76 U/L (40-130); Aspartate Amino Transferase 14 U/L (0-40); Blood Urea Nitrogen 8 mg/dL (6-20); Calcium 9.1 mg/dL (8.5-10.5); Carbon Dioxide 21 mmol/L (22-29); Chloride 102 mmol/L (98-107); Globulin 3.1 g/dL (1.3-4.6); Glomerular Filtration Rate 173.9 mL/min (90-130); Glucose 176 mg/dL (65-115); Magnesium 1.9 mg/dL (1.7-2.3); Osmolality Calculated 289 mOsm/kg (285-295); Phosphorus 3.2 mg/dL (2.5-4.5); Sodium 138 mmol/L (136-145); Total Bilirubin 0.5 mg/dL (0.15-1.2)
[2024-08-15 06:59] LABS: Anion Gap 18.6 (5-19); Creatinine Clr Calc Pharmacy 196.3484; Potassium 3.6 mmol/L (3.5-5.1)
[2024-08-15 07:10] LABS: Folate Level 13.2 ng/mL (4.5-32.2)
[2024-08-15] MEDS: acetaminophen 325 mg Tablet 650 MG PO ×2 (09:00→14:59)
[2024-08-15] MEDS: amlodipine 10 mg Tablet PO (09:01)
[2024-08-15] MEDS: hyDRALAzine 25 mg Tablet PO ×3 (09:01→15:17)
[2024-08-15] MEDS: aspirin 81 mg EC Tablet PO (09:01)
[2024-08-15] MEDS: docusate sodium 100 mg Capsule PO (09:01)
[2024-08-15] MEDS: lisinopril 20 mg Tablet 40 MG PO (09:01)
[2024-08-15] MEDS: metoprolol succinate ER (24 HR) 50 mg Tablet 100 MG PO (09:01)
[2024-08-15] MEDS: pantoprazole DR 40 mg Tablet PO (09:02)
[2024-08-15] MEDS: duloxetine 30 mg Capsule 60 MG PO (09:02)
[2024-08-15] MEDS: insulin lispro 100 unit/1 mL SUBCUT (09:08)
[2024-08-15] MEDS: heparin 5,000 unit/mL INJ 1 mL 5000 UNIT SUBCUT (09:26)
[2024-08-15 12:01] LABS: Glucose Point of Care 176 mg/dL (70-110)
[2024-08-15] MEDS: ondansetron 2 mg/ML SDV 2 mL 4 MG IVP (12:39)
--- NOTE | 2024-08-15 12:52 | PM.DCS ---
Discharge Providers Date of Admission: 08/14/24 18:08 Date of Discharge: August 15, 2024 Attending Provider at Admission: Roger Easley MD Attending Provider at Discharge: Roger Easley MD Primary Care Provider: NIEVES Carr Diagnoses at Discharge Discharge Diagnosis (1) TIA (transient ischemic attack): Status: Acute (2) Hypertension: Status: Acute (3) Type 2 diabetes mellitus: Status: Acute (4) Hyperlipidemia: Status: Acute (5) Depression: Status: Acute Reason for Visit Reason for Visit: stroke like symptoms Brief History: As per HPI: Efraín Kohler is a 53 year old male with past medical history of hypertension, hyperlipidemia, type 2 diabetes mellitus presents to the ER today because of episodes of slurred speech. Patient states he had an episode which lasted for around 1 minute earlier in the morning. After that event he had another episode in which he had slurred speech. Denied any weakness in his arms or legs, headache, dizziness, chest pain. Denies any history of TIAs or CVA in the past. States he has not been taking his medications as regularly as he needs to recently because he has been feeling depressed. Seen by neurologist in the ER who recommended patient to be monitored overnight. Hospital Course Hospital Course Patient was admitted because of further evaluation and management of possible TIA. He was found to have uncontrolled hypertension during hospitalization for which his antihypertensives have been adjusted. CT head and neck was done which was within normal limits. Echocardiogram has been done but has not been read yet. During hospitalization his antihypertensives have been adjusted. He is been advised to check his blood pressure daily at home maintain a blood pressure diary and follow-up with a primary care provider and neurologist within next 2 weeks for further adjustment of medications as needed. Patient did complain of feeling more depressed lately though he denied any homicidal or suicidal ideations. Physical Exam Narrative: General: No acute distress, AO x3 HEENT: PERRLA, pupils bilaterally equal and reactive Chest: Normal vesicular breath sounds, no added sounds, equal good air entry bilaterally CVS: S1-S2 regular, no murmurs, no tachycardia, no gallops, no rubs Abdomen: Soft, nontender, no organomegaly, bowel sounds present Neuro: No focal deficits, no facial deformity, AO x3, power 5/5 in all limbs Discharge Data Studies Completed and Pending Completed Studies During Hospitalization Category Date Time Status CT angio headneck* 32396/[id number] Stat Cat Scan 08/14/24 18:[address] head thrombolytic 48005 Stat Cat Scan 08/14/24 17:00 Completed XR chest 1V portable [id number] Stat Exams 08/14/24 17:00 Completed Pending at discharge Category Date Time Status Complete Blood Count w/Auto AM LABS Lab 08/16/24 04:00 Ordered Complete Blood Count w/Auto AM LABS Lab 08/17/24 04:00 Ordered Comprehensive Metabolic Panel AM LABS Lab 08/16/24 04:00 Ordered Comprehensive Metabolic Panel AM LABS Lab 08/17/24 04:00 Ordered Magnesium AM LABS Lab 08/16/24 04:00 Ordered Magnesium AM LABS Lab 08/17/24 04:00 Ordered Phosphorus AM LABS Lab 08/16/24 04:00 Ordered Phosphorus AM LABS Lab 08/17/24 04:00 Ordered CV. echo complete* [id number] Routine Ultrasound 08/15/24 22:43 Taken Radiology Impressions Chest X-Ray 08/14/24 17:00 IMPRESSION: No acute infiltrate. Head CT 08/14/24 17:00 IMPRESSION: No acute intracranial abnormality. ASSESSMENT: ASPECTS ([place] Stroke Program Early CT Score) is 10. ADDENDUM: 08/14/24 [id number] Addendum: THIS REPORT CONTAINS FINDINGS THAT MAY BE CRITICAL TO PATIENT CARE. The findings were verbally communicated via telephone conference with LAY MONTALVO at 5:13 PM INSTRUMENT/CONTROL TECHNICIAN on 08/14/2024. The findings were acknowledged and understood. Head/Neck CTA 08/14/24 18:08 IMPRESSION: No large vessel stenosis or occlusion. IMPRESSION: No stenosis or occlusion. REFERENCES: NASCET CRITERIA. The degree of stenosis in the cervical segment of the internal carotid artery is based on NASCET criteria. Normal is no stenosis. Mild is less than 50% stenosis. Moderate is 50-69% stenosis. Severe is 70% to 99% stenosis. Total occlusion is no detectable patent lumen. Laboratory Results WBC 12.49 10^3/uL (3.29-11.43) H 08/15/24 06:22 RBC 5.54 10^6/uL (3.85-5.65) 08/15/24 06:22 Hgb 16.70 g/dL (11.27-16.99) 08/15/24 06:22 Hct 50.0 % (37-53) 08/15/24 06:22 MCV 90.3 fl (82-101) 08/15/24 06:22 MCH 30.1 pg (27-33) 08/15/24 06:22 MCHC 33.4 g/dL (30-55) 08/15/24 06:22 RDW 12.8 % (12.1-15.1) 08/15/24 06:22 Plt Count 232 10^3/cmm (157-399) 08/15/24 06:22 MPV 9.8 fL (7.4-10.4) 08/15/24 06:22 Neut % (Auto) 67.1 % 08/15/24 06:22 Lymph % (Auto) 21.5 % 08/15/24 06:22 [place] % (Auto) 7.9 % 08/15/24 06:22 Eos % (Auto) 2.6 % 08/15/24 06:22 Baso % (Auto) 0.6 % 08/15/24 06:22 Neut # (Auto) 8.37 10^3/uL (1.8-7.7) H 08/15/24 06:22 Lymph # (Auto) 2.7 10^3/uL (0.8-4.8) 08/15/24 06:22 [place] # (Auto) 1.0 10^3/uL (0.2-0.9) H 08/15/24 06:22 Eos # (Auto) 0.3 10^3/uL (0.0-0.8) 08/15/24 06:22 Baso # (Auto) 0.1 10^3/uL (0.0-0.1) 08/15/24 06:22 Nucleated RBC % (auto) 0 % 08/15/24 06:22 Nucleated RBCs # 0.0 /100WBC 08/15/24 06:22 PT 13.40 SECONDS (12.1-14.9) 08/14/24 16:45 INR 0.96 (0.8-1.2) 08/14/24 16:45 APTT 26.2 SECONDS (23.9-36.7) 08/14/24 16:45 Sodium 138 mmol/L (136-145) 08/15/24 06:22 Potassium 3.6 mmol/L (3.5-5.1) 08/15/24 06:22 Chloride 102 mmol/L (98-107) 08/15/24 06:22 Carbon Dioxide 21 mmol/L (22-29) L 08/15/24 06:22 Anion Gap 18.6 (5-19) 08/15/24 06:22 BUN 8 mg/dL (6-20) 08/15/24 06:22 Creatinine 0.5 mg/dL (0.7-1.2) L 08/15/24 06:22 GFR Calculation 173.9 mL/min (90-130) H 08/15/24 06:22 Glucose 176 mg/dL (65-115) H 08/15/24 06:22 POC Glucose 176 mg/dL (70-110) H 08/15/24 11:53 Estimat Average Glucose 143 08/14/24 16:45 Hemoglobin A1c 6.6 % (4.0-6.0) H 08/14/24 16:45 Calculated Osmolality 289 mOsm/kg (285-295) 08/15/24 06:22 Calcium 9.1 mg/dL (8.5-10.5) 08/15/24 06:22 Phosphorus 3.2 mg/dL (2.5-4.5) 08/15/24 06:22 Magnesium 1.9 mg/dL (1.7-2.3) 08/15/24 06:22 Iron 90 ug/dL (59-158) 08/14/24 16:45 TIBC 253 mcg/dl 08/14/24 16:45 % Saturation 35.5 % (20-50) 08/14/24 16:45 Unsat Iron Binding 163 ug/dL (112-347) 08/14/24 16:45 Total Bilirubin 0.5 mg/dL (0.15-1.2) 08/15/24 06:22 AST 14 U/L (0-40) 08/15/24 06:22 ALT 17 U/L (0-41) 08/15/24 06:22 Alkaline Phosphatase 76 U/L (40-130) 08/15/24 06:22 Total Protein 7.0 g/dL (6.6-8.7) 08/15/24 06:22 Albumin 3.9 g/dL (3.5-5.2) 08/15/24 06:22 Globulin 3.1 g/dL (1.3-4.6) 08/15/24 06:22 Triglycerides 312 mg/dL (0-150) H 08/15/24 06:22 Cholesterol 172 mg/dL (0-200) 08/15/24 06:22 LDL Cholesterol, Calc 84 mg/dL (50-129) 08/15/24 06:22 HDL Cholesterol 26 mg/dL (60-100) L 08/15/24 06:22 LDL/HDL Ratio 3.23 RATIO (0.00-3.22) H 08/15/24 06:22 Cholesterol/HDL Ratio 6.62 mg/dL (1.0-5.00) H 08/15/24 06:22 Vitamin B12 328 pg/mL (232-1245) 08/14/24 16:45 Folate 13.2 ng/mL (4.5-32.2) 08/15/24 06:22 TSH 2.17 uIU/mL (0.27-4.20) 08/14/24 16:45 Urine Color Yellow (Yellow) 08/14/24 18:03 Urine Appearance Clear (CLEAR) 08/14/24 18:03 Urine pH 7.5 (5-7) 08/14/24 18:03 Ur Specific Pearl 1.020 (1.005-1.030) 08/14/24 18:03 Urine Protein Negative (Negative) 08/14/24 18:03 Urine Glucose (UA) 2+ (Normal) H 08/14/24 18:03 Urine Ketones Negative (Negative) 08/14/24 18:03 Urine Blood Negative (Negative) 08/14/24 18:03 Urine Nitrate Negative (Negative) 08/14/24 18:03 Urine Bilirubin Negative (Negative) 08/14/24 18:03 Urine Urobilinogen 1.0 mg/dL (Negative) 08/14/24 18:03 Ur Leukocyte Esterase Negative (Negative) 08/14/24 18:03 Urine RBC 0-2 /hpf (0-2) 08/14/24 18:03 Urine WBC 0-5 /hpf (0-5) 08/14/24 18:03 Ur Squamous Epith Cells 0-5 /hpf (0-5) 08/14/24 18:03 Amorphous Sediment Not Reportable 08/14/24 18:03 Urine Bacteria None seen /hpf (NONE) 08/14/24 18:03 Hyaline Casts 0-4 /lpf H 08/14/24 18:03 Urine Opiates Screen Negative ng/mL (Negative) 08/14/24 18:03 Ur Barbiturates Screen Negative ng/mL (Negative) 08/14/24 18:03 Ur Phencyclidine Scrn Negative ng/mL (Negative) 08/14/24 18:03 Ur Amphetamines Screen Negative ng/mL (Negative) 08/14/24 18:03 U Benzodiazepines Scrn Negative ng/mL (Negative) 08/14/24 18:03 Urine Cocaine Screen Negative ng/mL (Negative) 08/14/24 18:03 U Marijuana (THC) Screen Positive ng/mL (Negative) H 08/14/24 18:03 Vitals Last Vital Signs Temp 98.3 F 08/15/24 08:00 Pulse 69 08/15/24 08:00 Resp 17 08/15/24 08:00 BP 185/108 08/15/24 08:00 Pulse Ox 98 08/15/24 08:00 O2 Del Method Room Air 08/15/24 08:00 Discharge Plan Discharge Patient Disposition: Home Condition: Stable Prescriptions: New atorvastatin 40 mg Tablet 80 mg PO BEDTIME Qty: 60 0RF hydralazine 50 mg tablet 50 mg PO TID Qty: 90 0RF aspirin 81 mg Tablet,Delayed Release (Dr/Ec) 81 mg PO DAILY Qty: 30 0RF amlodipine 10 mg Tablet 10 mg PO DAILY Qty: 30 0RF Continued metoprolol succinate 50 mg tablet extended release 24 hr 100 mg PO DAILY duloxetine 30 mg capsule,delayed release(DR/EC) 60 mg PO DAILY dapagliflozin propanediol [Farxiga] 10 mg Tablet 10 mg PO DAILY glimepiride 2 mg Tablet 2 mg PO DAILY dorzolamide-timolol 22.3-6.8 mg/mL Drops 1 drp OPHTHALMIC (EYE) BID Changed lisinopril 20 mg Tablet 40 mg PO DAILY Qty: 60 0RF Discontinued metformin 500 mg Tablet 500 mg PO DAILY Discharge Orders: Discharge Order (Routine); Ordered 08/15/24 Ordered By: Roger Easley Referrals: Rio Anderson FNP [Primary Care Provider] - 7-10 days Richard Cope MD [Physician] - 2 weeks Discharge Diet: Regular, Cardiac and Diabetic Discharge Activity: Resume usual activity and Increase activity as tolerated Patient Instructions: Opioid Safety Activity Restrictions/Additional Instructions: Please check your blood pressure daily, maintain a blood pressure diary. Goal blood pressure of less than 140/90 mmHg. Lisinopril dose has been increased to 40 mg oral daily. Hydralazine dose has been changed to 50 mg 3 times a day. Continue using your metoprolol as before. Follow-up with with a primary care provider within next 1 week and with neurologist within next 2 weeks. Discharge Attestations Time Spent in Discharge Care*: greater than 30 min Specific Discharge Activities: educating patient, educating and/or supporting family/caregiver, discussing with pcp/other providers, discussing with correctional case manager/social workers/dc planners, documenting/other paperwork and evaluating patient/reviewing data Status at Discharge: Cognitive status at discharge: cognitively intact, Behavioral status at discharge: cooperative, Functional status at discharge: independent ambulation, Overall status at discharge: patient is back to baseline Quality Metrics Clinical Quality Measures [ No reported AMI, CVA or VTE this stay] Coding Level of Care Code 27463 Total time (in minutes) for Discharge: 60 Diagnoses TIA (transient ischemic attack) G45.9 Hypertension I10 Type 2 diabetes mellitus E11.9 Hyperlipidemia E78.5 Depression F32.A
--- NOTE | 2024-08-15 15:05 | PC.NURSE ---
Patient was discharged with a [facility] book to help him with looking for help with food and electricity. Iv's removed intact and patient tolerated well. Patient is A&Ox3. Respirations even and non-labored on room air. Reviewed patient's blood pressure medications. Explained the new Hydrazine medication and the increase to his regular Lisinopril and then continue to take his normal metoprolol. Patient verbalized understanding. Patient ambulated from the hospital with a stead gait.
--- NOTE | 2024-08-15 22:43 | USCV_ITS ---
Cristobal Kohler Age: 53 Gender: M : 1970 Exam Date: 08/15/2024 08:08 Ordering Phys: Roger Easley MD Technologist: Edmar Ross Exam Location: [facility] [place] [facility] [place] Indication: tia BP: 173 / 84 HR: 74 Rhythm: Sinus Technical Quality: Adequate MEASUREMENTS (Male / Female) Normal Values 2D ECHO LV Diastolic Diameter PLAX 5.6 cm 4.2 - 5.9 / 3.9 - 5.3 cm IVS Diastolic Thickness 1.3 cm 0.6 - 1.0 / 0.6 - 0.9 cm IVS Systolic Thickness 1.3 cm LVPW Diastolic Thickness 2.1 cm 0.6 - 1.0 / 0.6 - 0.9 cm LVPW Systolic Thickness 2.0 cm LVOT Diameter 2.0 cm LV Ejection Fraction 2D Teich 63.2 % LV Ejection Fraction MOD 4C 57.5 % LV Ejection Fraction MOD 2C 71.1 % LV Ejection Fraction 2C AL 69.6 % LA Diameter 3.4 cm RA Systolic Volume 4C AL 43.5 ml RA Systolic Volume 4C MOD 40.1 ml LA Sys Volume AL 53.5 cm cubed LA Sys Volume Index AL 24.3 cm cubed/m squared Aorta at Sinotubular Diameter 2.8 cm IVC Diameter 1.7 cm DOPPLER AV Peak Velocity 119.0 cm/s LVOT Peak Velocity 72.0 cm/s AV Area Cont Eq vti 1.7 cm squared AV Area Cont Eq pk 2.0 cm squared MV Peak Velocity 96.3 cm/s MV Area PHT 4.6 cm squared Mitral E to A Ratio 0.8 TR Peak Velocity 152.0 cm/s TR Peak Gradient 9.2 mmHg TR Mean Velocity 113.0 cm/s TR Mean Gradient 5.9 mmHg TR Velocity Time Integral 42.6 cm PV Peak Velocity 108.0 cm/s RV Ejection Time 0.3 s FINDINGS Left Ventricle Normal left ventricular size, systolic function and wall thickness, with no regional wall motion abnormalities. Left ventricular ejection fraction is estimated at 60 %. Grade I/IV diastolic dysfunction (abnormal relaxation filling pattern), normal to mildly elevated filling pressures. Right Ventricle The right ventricle is normal in size and function. Right Atrium The right atrium is normal in size. Left Atrium The left atrium is normal in size. Mitral Valve Structurally normal mitral valve without significant stenosis or prolapse. There is no mitral regurgitation. Aortic Valve Mild aortic valve calcification. No aortic valve stenosis. Trace aortic valve regurgitation. Tricuspid Valve Structurally normal tricuspid valve without significant stenosis or regurgitation. Pulmonary artery systolic pressure is normal. Pulmonic Valve Structurally normal pulmonic valve without significant stenosis. There is no pulmonic regurgitation. Pericardium Normal pericardium without effusion. Aorta Normal ascending aorta dimension. IVC The inferior vena cava appears normal. CONCLUSIONS Normal left ventricular size, systolic function and wall thickness, with no regional wall motion abnormalities. Left ventricular ejection fraction is estimated at 60 %. Grade I/IV diastolic dysfunction (abnormal relaxation filling pattern), normal to mildly elevated filling pressures. There is no pericardial effusion. No significant valve abnormalities. Right atrial pressure is around 5 mm of mercury. Leonard Avila MD (Electronically Signed) Final Date: 15 August 2024 20:38 S
== END 2024-08-15 15:05 | disposition home or self-care (01) ==
LOC: ER 17:53 → MEDSURG 23:49
PROVIDERS: Admitting Provider Student in an Organized Health Care Education/Training Program; Emergency Provider Student in an Organized Health Care Education/Training Program; PCP Nurse Practitioner; Visit Provider Student in an Organized Health Care Education/Training Program
DX: G45.9 Transient cerebral ischemic attack, unspecified (principal); E78.5 Hyperlipidemia, unspecified; I10 Essential (primary) hypertension; R47.81 Slurred speech; F32.A Depression, unspecified; E11.9 Type 2 diabetes mellitus without complications; Z79.899 Other long term (current) drug therapy; Z79.84 Long term (current) use of oral hypoglycemic drugs; Z98.1 Arthrodesis status; Z82.3 Family history of stroke; Z80.0 Family history of malignant neoplasm of digestive organs; Z82.49 Family history of ischemic heart disease and other diseases of the circulatory system; Z90.81 Acquired absence of spleen
CPT/HCPCS: 36415; 36416; 70450; 70496; 70498; 71045; 80053; 80061; 80306; 81001; 82607; 82746; 82962; 83036; 83540; 83550; 83735; 84100; 84443; 85025; 85610; 85730; 93005; 93306; 94664; 96372; 96374; 96375; 99285; G0378; J0360; J1644; J1815; J2405

== ENCOUNTER → 2024-11-18 14:01 | Outpatient (BNVA) | payer BC, MEDICAID, SELFPAY | PROVIDERS: PCP Nurse Practitioner; Referring Provider Radiology Diagnostic Radiology; Visit Provider Specialist | DX: G62.89 Other specified polyneuropathies (principal) | CPT/HCPCS: 36415; 82607 ==